=== PATIENT | female | born 1960 | race Caucasian/White ===

== ENCOUNTER 2017-10-11 02:25 | Inpatient (IN) | payer OTHER ==
[~2017-10-11] VITALS: Ht 162.6 cm; Wt 101.6 kg
[~2017-10-11 02:25] MED LIST: ALLEGRA ALLERG180 M1 PO; IMITREX100 M1 PO; L-LYSINE600 MG PO; MAGNESIUM250 M3 PO; PROAIR HFA8.5 GM INH; VALSARTAN80 M1 PO
--- NOTE | 2017-10-11 10:06 | Operative Report ---
Operative/Inv Procedure Report Surgery Date: 10/11/17 Name of Procedure: Laparocopic Sleeve Gastrectomy, Laparoscopic extensive lysis of adhesions ~45 min Pre-Operative Diagnosis: Morbid Obesity BMI 38, HTN, RANDA, Hyperlipidemia, S/P Lap Band Post-Operative Diagnosis: Same Estimated Blood Loss: 50ml to 100ml Surgeon/Men'S Designer: Param Christie DO Anesthesia: general endotracheal tube IV Fluids: 1800 cc Drains: None Specimens: Stomach Complications: None Condition: Stable Operative Indication: This is a 57-year-old female presented to the office for workup for bariatric surgery. After appropriate workup was completed I discussed with the patient the sleeve, and the gastric bypass. Patient was status post lap band and subsequent lap and removal. The patient chose to undergo a sleeve gastrectomy. All risks including but not limited to bleeding, infection, leak, stricture, injury to surrounding bowel/esophagus/stomach/liver/spleen, long-term reflux, DVT/PE, and mortality of 04/999 patients were discussed in detail. I also spoke to the patient that given the fact that it is a revision of her risk of complications of the slightly higher. The patient understood everything and decided to proceed. Operative/Procedure Note Note: The patient was brought to the operating room and placed on the operating room table in supine position. Venodyne stockings were placed and adequate general endotracheal anesthesia was obtained. The patient was prepped and draped in standard surgical fashion. Began the procedure by making a 2 cm transverse incision supraumbilically and slightly to the left of the midline. Then using a 12 mm clear Visiport and a 10 mm 0 laparoscope, the abdominal cavity was accessed. Great care was taken to go through the anterior rectus sheath, the posterior rectus sheath, and through the peritoneum. Once we entered the peritoneum the abdominal cavity was insufflated to 15 mmHg. Upon initial examination no obvious gross pathology was seen. Accessory trocars were placed, 5 mm in the epigastrium for the Deanna liver retractor. The retractor was inserted and the liver was retracted anteriorly exposing the hiatus, adhesions were noted between the proximal stomach and liver. 5 mm ports were placed in the right and left upper quadrant, a 5 mm left lateral port, and a 15 mm right lateral port. Began the procedure by lysing adhesions between the upper stomach and the liver. This was done using harmonic scalpel and EndoShears maintaining hemostasis and making sure not to get into the stomach. Total time for lysis of adhesions was approximately 45 minutes. Once the stomach was fully mobilized and the hiatus/esophagogastric fat pad were clearly seen we began mobilizing the greater curvature of the stomach approximately 7 cm from the pylorus. Once the retrogastric space was reached the whole greater curvature was mobilized maintaining hemostasis using Harmonic scalpel. Full hiatal dissection was performed, no hiatal hernia was seen. Posterior adhesions were taken down using Harmonic scalpel as well. Once the stomach was adequately mobilized a 38 Lebanese bougie was inserted and placed along the lesser curvature of the stomach. Once the bougie was in the appropriate position we began creating our sleeve, two 60 mm black staple loads with seamguard followed by four 60 mm purple staple loads with seamguard as well. Great care was taken to leave ample room at the incisura angularis, to prevent any twisting or kinking of the sleeve, to stay lateral to the esophagogastric fat pad, and to do a full fundal excision. At the completion of the staple line the staple line was examined, it appeared intact and no obvious bleeding was noted. The bougie was removed, the sleeve was lying nicely without any twisting or kinking. The resected stomach was removed through the right lateral port site. The port and the left upper quadrant were irrigated until clear. All ports were removed under direct visualization no obvious bleeding was noted. The 15 mm port site fascia was closed using 0 Vicryl suture. The skin was closed using 4-0 Monocryl. Steri- Strips and dressings were placed. The patient was successfully extubated and transferred to the recovery room in stable condition. The patient tolerated the procedure well with no complications. Findings: No hiatal hernia, 38 Fr bougie, extensive adhesions between upper stomach and liver CC: Sd THOMAS,Destini
--- NOTE | 2017-10-11 10:24 | Surg Short-stay <48hrs Dis Sum ---
Visit Information Visit Dates Admission Date: 10/11/17 Discharge Date: 10/13/17 Surgical Short Stay DC Summary Admission Diagnosis: Morbid Obesity BMI 38, HTN, RANDA, Hyperlipidemia, S/P Lap Band and removal Final Diagnosis: same as above, s/p Surgery Date: 10/11/17 Name of Procedure: Laparocopic Sleeve Gastrectomy, Laparoscopic extensive lysis of adhesions ~45 min Procedure(s): Surgery Date: 10/11/17 Name of Procedure: Laparocopic Sleeve Gastrectomy, Laparoscopic extensive lysis of adhesions ~45 min Summary/Significant Findings: Electively scheduled laparoscopic sleeve gastrectomy, and laparoscopic extensive lysis of adhesions ~45 min by on 10/11/17, for morbid obesity (BMI 38) , HTN, RANDA, Hyperlipidemia, and s/p Lap Band and removal status. Started on stage 1 bariatric diet post-operatively. Eleninox teaching done prior to discharge home. Pain control transitioned from iv to oral medications. Condition at Discharge: stable Discharge Disposition: home or self care Discharge instructions provided to patient/family: Yes Post discharge follow-up plan: one week follow up with Dr.Fridman allen teaching for continued dvt prophylaxis Copies to: Sd THOMAS,Destini
--- NOTE | 2017-10-11 10:27 | Patient Discharge Instructions ---
Discharge Instructions General Discharge Information You were seen/treated for: Morbid Obesity BMI 38, HTN, RANDA, Hyperlipidemia, S/P Lap Band and removal You had these procedures: Surgery Date: 10/11/17 Name of Procedure: Laparoscopic Sleeve Gastrectomy, Laparoscopic extensive lysis of adhesions ~45 min Watch for these problems: fever>101.3, increased pain, redness/swelling/drainage, shortness of breath, chest pains No bath, but you may shower: Yes Other wound care: ok to remove bandaids. leave white steri strips in place. keep incisions clean & dry. Special Instructions: continue lovenox injections as directed Diet Continue normal diet: No Recommended Diet: Bariatric Additional DIET Information: weekly bariatric stage diet advancement as directed, as tolerated Activity Full Activity/No Limits: No Activity Self Limited: Yes Pounds, do NOT lift more than: 10 Other activity limits: continue to walk frequently Additional ACTIVITY Info: no heavy lifting. no strenuous activity. Acute Coronary Syndrome Inclusion Criteria At DC or during hospital stay patient has or had the following: ACS DIAGNOSIS No Discharge Core Measures Meds if any: Prescribed or Continued at Discharge Meds if any: NOT Prescribed or Continued at Discharge Congestive Heart Failure Inclusion Criteria At DC or during hospital stay patient has or had the following: CHF DIAGNOSIS No Discharge Core Measures Meds if any: Prescribed or Continued at Discharge Meds if any: NOT Prescribed or Continued at Discharge Cerebrovascular accident Inclusion Criteria At DC or during hospital stay patient has or had the following: CVA/TIA Diagnosis No Discharge Core Measures Meds if any: Prescribed or Continued at Discharge Meds if any: NOT Prescribed or Continued at Discharge Venous thromboembolism Inclusion Criteria VTE Diagnosis No VTE Type NONE VTE Confirmed by (Test) NONE Discharge Core Measures - Per Current guidelines, there needs to be overlap - treatment for the first 5 days of Warfarin therapy. - If discharged on Warfarin prior to 5 days of - overlap therapy, the patient will need to be - assessed for post discharge needs including - *Post discharge parental anticoagulation - *Warfarin and/or parental anticoagulation education - *Follow up date to check INR post discharge At least 5 days overlap therapy as Inpatient No Meds if any: Prescribed or Continued at Discharge Note: Overlap Therapy is Warfarin and Anticoagulant Meds if any: NOT Prescribed or Continued at Discharge
[2017-10-11] MEDS ORDERED: LOVENOX40 MG/0.1 SC (10:37)
[2017-10-11] MEDS ORDERED: PROTONIX40 M3 PO (10:37)
[2017-10-11] MEDS ORDERED: HYCET 7.5 MG-3473 ML PO (10:37)
--- NOTE | 2017-10-11 10:42 | Admission Core Measures ---
Acute Coronary Syndrome (CM) ACS Core Measures Acute Coronary Syndrome Diagnosis No Congestive Heart Failure (NEW) CHF Core Measures Congestive Heart Failure Diagnosis No Cerebrovascular Accident CVA Core Measures CVA/TIA Diagnosis No Venous Thromboembolism VTE Core Ivone (View Protocol) VTE Risk Factors Surgery No Mechanical VTE Prophylaxis d/t N/A MechProphylax Ordered No VTE Pharm Prophylaxis d/t NA PharmProphylax ordered Problem List As ranked by this Provider includes Assessment & Plan 1. Morbid obesity 2. Hypertension 3. S/P laparoscopic sleeve gastrectomy HOME MEDS Home Med List Albuterol Sulfate (Proair Hfa) 90 MCG HFA.AER.AD 2 PUF INH Q4-6 PRN PRN ASTHMA (Reported) Enoxaparin Sodium (Lovenox) 40 MG/0.4 ML SYRINGE 0.4 ML SC DAILY BLOOD CLOT RISK REDUCTION Fexofenadine HCl (Lizz Allergy) 180 MG TABLET 1 TAB PO DAILY ALLERGIES/ ASTHMA (Reported) Hydrocodone/Acetaminophen (Hycet 7.5 MG-325 MG/15 Ml Soln) 7.5 MG-325 MG/15 ML SOLUTION 15 ML PO Q4-6 PRN PRN PAIN CONTROL Lysine (L-Lysine) (Unknown Strength) TABLET (Unknown Dose) PO DAILY SUPPLEMENT (Reported) Magnesium (Unknown Strength) TABLET (Unknown Dose) PO DAILY SUPPLEMENT ( Reported) Pantoprazole Sodium (Protonix) 40 MG TABLET.DR 1 TAB PO DAILY ULCER RISK REDUCTION Sumatriptan Succinate (Imitrex) 100 MG TABLET 1 TAB PO AD MIGRAINES (Reported ) Valsartan 80 MG TABLET 1 TAB PO DAILY HTN (Reported)
[2017-10-11 11:34] VITALS: BP 146/90
--- NOTE | 2017-10-11 13:54 | PN- Bariatrics ---
Subjective Subjective: POST-OP NOTE Reports migraine headache most bothersome at the moment. Asking for her imitrex, which she takes at home for migraines. Some nausea. Some epigastric discomfort. Out of bed to bathroom without difficulty. No dizziness. No shortness of breath. No chest pains. Voiding well. Objective Vital Signs and I&Os Vital Signs Date Time Temp Pulse Resp B/P B/P Pulse O2 O2 Flow FiO2 Mean Ox Delivery Rate 10/11 1340 18 94 Room Air 10/11 1340 94 Room Air 10/11 1317 Room Air 10/11 1200 98 Nasal 2.0L Cannula 10/11 1134 98 Nasal 2.0L Cannula 10/11 1134 97.8 77 17 146/90 98 Nasal 2.0L Cannula Intake & Output 10/11 1600 10/11 0800 10/11 0000 10/10 1600 10/10 0800 10/10 0000 Intake Total 115 Output Total 200 Balance -85 Intake, IV 100 Intake, Oral 15 Number 0 Bowel Movements Output, Urine 200 Patient 224 lb Weight Weight Bed scale Measurement Method Physical Exam: General - alert & oriented x 3. comfortable. no acute distress. Lungs - clear bilaterally. no w/r/r. Cardiac - s1s2. reg. Abdomen - soft. dressings stained, but intact. no drains. no hematoma. Extremities - warm bilaterally. no c/c/e. calves soft and nontender b/l. athrombics active. Current Medications: Current Medications Sig/Regis Start time Last Medication Dose Route Stop Time Status Admin Acetaminophen 1,000 MG Q6 10/11 1200 AC 10/11 N/A 1 UNIT IV 10/12 0614 1208 Albuterol Sulfate 2 PUF Q4 PRN 10/11 1015 AC INH Cefazolin Sodium 2,000 MG IQ8 10/11 1600 AC IV 10/12 0001 Cefazolin Sodium 2,000 MG ONCE 10/11 0000 DC IV 10/11 2359 Dexamethasone 8 MG ONCE PRN 10/11 1200 AC IV PUSH Dextrose/Sodium 1,000 ML Q8H 10/11 1200 AC 10/11 Chloride IV 1209 Heparin Sodium 5,000 UNIT Q8 10/11 1400 AC 10/11 (Porcine) SC 1337 Heparin Sodium 5,000 UNIT ONCE 10/11 0000 DC (Porcine) SC 10/11 2359 Hydrocodone Bitart/ 15 ML Q4-6 PRN PRN 10/12 0800 AC Acetaminophen PO Loratadine 10 MG DAILY 10/12 0900 AC PO Morphine Sulfate 2 MG Q4-6 PRN PRN 10/11 1200 AC IV Ondansetron HCl 4 MG Q6P PRN 10/11 1200 AC IV Pantoprazole Sodium 40 MG DAILY 10/12 0900 AC IV Simethicone 40 MG Q6P PRN 10/11 1200 AC PO Sumatriptan Succinate 100 MG DAILY NEEDED PRN 10/11 1200 AC PO Assessment/Plan Assessment/Plan This 57 year old female is POD#0 s/p laparoscopic sleeve gastrectomy, and extensive lysis of adhesions for history of morbid obesity (BMI 38), HTN, RANDA, Hyperlipidemia, S/P Lap Band / removal, currently reporting migraine headache stage 1 bariatric diet as tolerated iv tylenol / imitrex prn migraine headaches oob/ambulation encouraged hep sc - dvt ppx lovenox teaching for home (she has pre-op script filled) home meds re-ordered, including her bp med (losartan substituted for valsartan) IST f/u am labs possible upper gi study in am will d/w Core Measures Venous Thromboembolism VTE Risk Factors Surgery No Mechanical VTE Prophylaxis d/t N/A MechProphylax Ordered No VTE Pharm Prophylaxis d/t NA PharmProphylax ordered
[2017-10-11 16:18] VITALS: BP 162/92
[2017-10-11 20:00] VITALS: BP 130/80
[2017-10-12 05:29] VITALS: BP 140/60
[2017-10-12 07:18] VITALS: BP 140/60
--- NOTE | 2017-10-12 07:56 | PN- Bariatrics ---
See Addendum Subjective Subjective: Major complaint has been nausea last evening and night, however improved this morning. She c/o headache and requesting Imitrex. She is passing gas and ambulated in tong this morning. Objective Vital Signs and I&Os Vital Signs Date Time Temp Pulse Resp B/P B/P Pulse O2 O2 Flow FiO2 Mean Ox Delivery Rate 10/12 0718 97.7 81 17 140/60 95 10/12 0600 Room Air 10/12 0529 97.7 81 17 140/60 95 10/12 0000 98 Room Air 10/11 2200 95 Room Air 10/11 2000 98.3 75 17 130/80 95 Room Air 10/11 1800 95 Room Air 10/11 1618 97.7 76 17 162/92 95 Room Air 10/11 1600 94 Room Air 10/11 1340 18 94 Room Air 10/11 1340 94 Room Air 10/11 1317 Room Air 10/11 1200 98 Nasal 2.0L Cannula 10/11 1134 98 Nasal 2.0L Cannula 10/11 1134 97.8 77 17 146/90 98 Nasal 2.0L Cannula Intake & Output 10/12 0800 10/12 0000 10/11 1600 10/11 0800 10/11 0000 10/10 1600 Intake Total 1470 975 Output Total 1200 400 200 Balance -1200 1070 775 Intake, IV 750 600 Intake, Oral 720 375 Number 0 Bowel Movements Output, Urine 1200 400 200 Patient 224 lb Weight Weight Bed scale Measurement Method Alert , oriented, appropriate. Lungs clear bilat. Heart regular Abdomen is obese, soft, essentially non tender, port sites are clean, dry, intact. Extr. without edema. Assessment/Plan Assessment/Plan s/p lap. gastric sleeve and extensive VON POD#1 Clinically looks well. Stable hemodynamics, SBP borderline, on Losartan( Valsartan at home) Abdominal exam is as expected without tenderness. She has been having nausea, although improved.It was not related to PO intake yesterday. Awaiting UGI this morning. If stable, will advance diet to stage 1 and Hep lock IVF. Migraine, will give dose of Imitrex.( pt. has hx of migraines) Ambulate Possible discharge home later this afternoon if nausea resolves Lovenox teaching ( has script at home) Core Measures Venous Thromboembolism VTE Risk Factors Surgery No Mechanical VTE Prophylaxis d/t N/A MechProphylax Ordered No VTE Pharm Prophylaxis d/t NA PharmProphylax ordered
[2017-10-12 09:36] LABS: ABSOLUTE BASOPHIL COUNT 0 /CUMM (0.0-0.2); ABSOLUTE EOSINOPHIL COUNT 0 /CUMM (0.0-0.7); ABSOLUTE GRANULOCYTE CT 10.1 /CUMM (1.4-6.5); ABSOLUTE LYMPH COUNT 1.2 /CUMM (1.2-3.4); ABSOLUTE MONOCYTE COUNT 0.8 /CUMM (0.10-0.60); BASOPHIL % 0 % (0.0-2.0); EOSINOPHIL % 0 % (0-5); HEMATOCRIT 37.7 % (37-47); MEAN CORPUSCULAR HGB 28.1 PG (27.0-31.0); MEAN CORPUSCULAR HGB CONC 33.3 G/DL (33.0-37.0); MEAN CORPUSCULAR VOLUME 84.3 FL (81.0-99.0); MEAN PLATELET VOLUME 8.1 FL (7.4-10.4); PLATELET COUNT 341 /CUMM (130-400); RBC DISTRIBUTION WIDTH 15.5 % (11.5-14.5); RED BLOOD CELL CT 4.46 /CUMM (4.20-5.40); WHITE BLOOD CELL COUNT 12.1 /CUMM (4.8-10.8)
[2017-10-12 10:42] LABS: GRANULOCYTE % 83.4 % (42.2-75.2)
[2017-10-12 14:04] VITALS: BP 130/90
[2017-10-12 21:55] VITALS: BP 152/88
[2017-10-13 06:52] VITALS: BP 150/60
[2017-10-13] MEDS ORDERED: PROTONIX40 M3 PO (07:35)
[2017-10-13] MEDS ORDERED: HYCET 7.5 MG-3473 ML PO (07:35)
--- NOTE | 2017-10-13 07:44 | PN- General Surgery ---
Subjective Subjective: 57 y/o female POD 2 gastric sleeve did well overnight -minimal nausea pain controlled but feels bloated passing gas Objective Vital Signs and I&Os Vital Signs Date Time Temp Pulse Resp B/P B/P Pulse O2 O2 Flow FiO2 Mean Ox Delivery Rate 10/13 0652 98.6 78 18 150/60 94 10/13 0600 92 Room Air 10/13 0000 95 Room Air 10/12 2155 98.7 72 18 152/88 92 10/12 1600 95 Room Air 10/12 1404 98.4 77 20 130/90 97 Room Air 10/12 1248 71 130/100 10/12 1200 97 Room Air 10/12 0800 93 Room Air Intake & Output 10/13 0800 10/13 0000 10/12 1600 10/12 0800 10/12 0000 10/11 1600 Intake Total 750 1390 1395 1600 1470 975 Output Total 432 707 1298 1900 400 200 Balance 150 1065 -855 -300 1070 775 Intake, IV 750 1000 1125 1000 750 600 Intake, Oral 390 270 600 720 375 Number 0 0 0 0 Bowel Movements Output, Urine 648 633 9535 1900 400 200 Patient 224 lb Weight Weight Bed scale Measurement Method Physical Exam: lying in bed alert and oriented but tired VSS afebrile chest- CTA symmetric Heart-RRR without MRG Abd- obese, mild tenderness and bloating pos BS, portals CDI calves soft bilaterally Admission Lab Results I reviewed the following labs: Laboratory Tests 10/13 10/12 0646 0919 Chemistry Sodium (137 - 145 mmol/L) Pending 141 Potassium (3.5 - 5.1 mmol/L) Pending 4.4 Chloride (98 - 107 mmol/L) Pending 102 Carbon Dioxide (22 - 30 mmol/L) Pending 28 Anion Gap (5 - 16) Pending 11 BUN (7 - 17 mg/dL) Pending 13 Creatinine (0.5 - 1.0 mg/dL) Pending 0.8 Estimated GFR (>60 ml/min) > 60 BUN/Creatinine Ratio (7 - 25 %) Pending 16.3 Glucose (65 - 99 mg/dL) 94 Magnesium (1.6 - 2.3 mg/dL) 2.0 Hematology CBC w Diff Pending NO MAN DIFF REQ WBC (4.8 - 10.8 /CUMM) Pending 12.1 H RBC (4.20 - 5.40 /CUMM) Pending 4.46 Hgb (12.0 - 16.0 G/DL) Pending 12.5 Hct (37 - 47 %) Pending 37.7 MCV (81.0 - 99.0 FL) Pending 84.3 MCH (27.0 - 31.0 PG) Pending 28.1 MCHC (33.0 - 37.0 G/DL) Pending 33.3 RDW (11.5 - 14.5 %) Pending 15.5 H Plt Count (130 - 400 /CUMM) Pending 341 MPV (7.4 - 10.4 FL) Pending 8.1 Gran % (42.2 - 75.2 %) 83.4 H Lymphocytes % (20.5 - 51.1 %) 9.9 L Monocytes % (1.7 - 9.3 %) 6.7 Eosinophils % (0 - 5 %) 0 Basophils % (0.0 - 2.0 %) 0 Absolute Granulocytes (1.4 - 6.5 /CUMM) 10.1 H Absolute Lymphocytes (1.2 - 3.4 /CUMM) 1.2 Absolute Monocytes (0.10 - 0.60 /CUMM) 0.8 H Absolute Eosinophils (0.0 - 0.7 /CUMM) 0 Absolute Basophils (0.0 - 0.2 /CUMM) 0 Assessment/Plan Assessment/Plan A/P POD 2 gastric sleeve bariatic 1 diet this am She would like to leave this afternoon if she can tolarate her diet. Right now nausea is controlled OOB ambulating Core Measures Venous Thromboembolism VTE Risk Factors Surgery No Mechanical VTE Prophylaxis d/t N/A MechProphylax Ordered No VTE Pharm Prophylaxis d/t NA PharmProphylax ordered
[2017-10-13 08:23] LABS: ABSOLUTE BASOPHIL COUNT 0 /CUMM (0.0-0.2); ABSOLUTE EOSINOPHIL COUNT 0 /CUMM (0.0-0.7); ABSOLUTE GRANULOCYTE CT 7.7 /CUMM (1.4-6.5); ABSOLUTE LYMPH COUNT 0.7 /CUMM (1.2-3.4); ABSOLUTE MONOCYTE COUNT 0.2 /CUMM (0.10-0.60); BASOPHIL % 0 % (0.0-2.0); EOSINOPHIL % 0 % (0-5); GRANULOCYTE % 89.9 % (42.2-75.2); HEMATOCRIT 36.9 % (37-47); MEAN CORPUSCULAR HGB CONC 32.9 G/DL (33.0-37.0); MEAN PLATELET VOLUME 8.7 FL (7.4-10.4); PLATELET COUNT 311 /CUMM (130-400); RBC DISTRIBUTION WIDTH 15.5 % (11.5-14.5); RED BLOOD CELL CT 4.35 /CUMM (4.20-5.40); WHITE BLOOD CELL COUNT 8.6 /CUMM (4.8-10.8)
[2017-10-13 08:27] VITALS: BP 150/60
--- NOTE | 2017-10-13 08:50 | RADIOLOGY REPORT ---
EXAMINATION: FL UPPER GI SERIES CLINICAL INFORMATION: 57-year-old female status post revision of sleeve gastrectomy. COMPARISON: 12/30/2016. TECHNIQUE: A single contrast upper GI series with fluoroscopy and spot imaging was performed with use of 30 mL of Gastroview contrast material. FLUOROSCOPY TIME: 30 seconds NUMBER OF IMAGES: 7 images FINDINGS: After oral intake of 30 mL of Gastroview contrast material, there was no delay in passage of contrast through the esophagus and into the stomach, which had the expected configuration after sleeve gastrectomy. Also, there was no significant delay in passage of contrast into the normal duodenum. No evidence of a fixed filling defect, mucosal thickening, upper gastrointestinal tract obstruction or contrast leakage. IMPRESSION: No evidence of gastric leakage of contrast after sleeve gastrectomy.
== END 2017-10-13 14:45 | DRG 621 ==
LOC: 2NB 02:25 → SDA 02:25 → ENRESERV 10:11 → ENTRNSPT 11:16 → EDTRNSPTSTS 11:27 → CMPTRNSPT 11:33 → 2NB 11:35 → ENPENDDIS 10-13 07:41 → 2NB 10-13 14:45
PROVIDERS: Physician Assistant; Physician Assistant Surgical
PROC: 0DB64Z3 Excision of Stomach, Percutaneous Endoscopic Approach, Vertical (ICD-10-PCS; principal; 2017-10-11)
PROC: 3E0T3BZ Introduction of Anesthetic Agent into Peripheral Nerves and Plexi, Percutaneous Approach (ICD-10-PCS; principal; 2017-10-11)
PROC: 0DN64ZZ Release Stomach, Percutaneous Endoscopic Approach (ICD-10-PCS; principal; 2017-10-11)
DX: E66.01 Morbid (severe) obesity due to excess calories (principal); Z68.38 Body mass index [BMI] 38.0-38.9, adult; I10 Essential (primary) hypertension; K21.9 Gastro-esophageal reflux disease without esophagitis; G47.33 Obstructive sleep apnea (adult) (pediatric); K66.0 Peritoneal adhesions (postprocedural) (postinfection); Z79.51 Long term (current) use of inhaled steroids
CPT/HCPCS: 2NBSP; 36415; 74240; 82436; J0131; J0690; J1100; J1644; J1650; J1885; J2405; J3490; J7042